=== PATIENT | female | born 1950 | race Native Hawaiian/Other Pacific Islander ===

== ENCOUNTER 2018-02-27 07:34 | Outpatient (CLI) | payer OTHER | END 2018-02-27 19:28 | disposition home or self-care (01) | LOC: LABW 07:34 | DX: R73.9 Hyperglycemia, unspecified (principal) | CPT/HCPCS: 36415; 83036 ==

== ENCOUNTER 2018-08-20 07:57 | Outpatient (CLI) | payer OTHER | END 2018-08-20 22:21 | disposition home or self-care (01) | LOC: MRI 07:57 | DX: M54.5 Low back pain (principal); M54.16 Radiculopathy, lumbar region ==

== ENCOUNTER 2019-03-25 08:54 | Outpatient (CLI) | payer OTHER | END 2019-03-25 21:51 | disposition home or self-care (01) | LOC: LABW 08:54 | DX: R30.0 Dysuria (principal) | CPT/HCPCS: 81000; 87077; 87086; 87088; 87186 ==

== ENCOUNTER 2019-06-12 12:55 | Outpatient (CLI) | payer OTHER | END 2019-06-12 19:13 | disposition home or self-care (01) | LOC: LAB 12:55 | DX: N30.00 Acute cystitis without hematuria (principal) | CPT/HCPCS: 87077; 87086; 87088; 87186 ==

== ENCOUNTER 2020-01-21 09:56 | Outpatient (CLI) | payer OTHER | END 2020-01-21 19:29 | disposition home or self-care (01) | LOC: RAD 09:56 | DX: M25.562 Pain in left knee (principal); M25.561 Pain in right knee ==

== ENCOUNTER 2020-02-12 08:47 | Outpatient (CLI) | payer OTHER | END 2020-02-12 23:54 | disposition home or self-care (01) | LOC: MRI 08:47 | DX: M25.562 Pain in left knee (principal) ==

== ENCOUNTER 2020-07-01 12:10 | Outpatient (CLI) | payer OTHER | END 2020-07-01 19:26 | disposition home or self-care (01) | LOC: RAD 12:10 | PROVIDERS: ATTEND Physician Assistant | DX: M25.562 Pain in left knee (principal) ==

== ENCOUNTER 2020-09-23 09:31 | Outpatient (CLI) | payer OTHER | END 2020-09-23 19:04 | disposition home or self-care (01) | LOC: RAD 09:31 | PROVIDERS: ATTEND Orthopaedic Surgery | DX: M25.562 Pain in left knee (principal) ==

== ENCOUNTER 2020-12-13 10:10 | Outpatient (CLI) | payer OTHER ==
[2020-12-13 10:45] LABS: PLATELET COUNT 229 K/uL (152-353)
[2020-12-13 11:20] LABS: POTASSIUM 4.8 mmol/L (3.6-5.2)
== END 2020-12-13 19:30 | disposition home or self-care (01) ==
LOC: LABW 10:10
PROVIDERS: ATTEND Internal Medicine
DX: R10.9 Unspecified abdominal pain (principal); R53.83 Other fatigue; L65.9 Nonscarring hair loss, unspecified; Z79.899 Other long term (current) drug therapy; E55.9 Vitamin D deficiency, unspecified
CPT/HCPCS: 36415; 80053; 81000; 82043; 82306; 82330; 82570; 82607; 82728; 82746; 83036; 83540; 83550; 83690; 83735; 84100; 84155; 84439; 84443; 85027; 85652; 86038; 87077; 87086; 87088; 87186

== ENCOUNTER 2020-12-15 09:47 | Outpatient (CLI) | payer OTHER | END 2020-12-15 22:13 | disposition home or self-care (01) | LOC: CT 09:47 | PROVIDERS: ATTEND Internal Medicine | DX: R10.84 Generalized abdominal pain (principal) | CPT/HCPCS: Q9963 ==

== ENCOUNTER 2021-05-10 13:16 | Outpatient (CLI) | payer OTHER | END 2021-05-10 18:59 | disposition home or self-care (01) | LOC: LAB 13:16 | PROVIDERS: ATTEND Internal Medicine | DX: L98.8 Other specified disorders of the skin and subcutaneous tissue (principal) ==

== ENCOUNTER 2021-08-10 09:14 | Outpatient (CLI) | payer OTHER | END 2021-08-10 21:58 | disposition home or self-care (01) | LOC: CT 09:14 | PROVIDERS: ATTEND Internal Medicine | DX: J18.9 Pneumonia, unspecified organism (principal) | CPT/HCPCS: 36415; 82565; 84520; Q9963 ==

== ENCOUNTER 2021-10-09 10:01 | Outpatient (CLI) | payer OTHER | END 2021-10-09 19:49 | disposition home or self-care (01) | LOC: LABW 10:01 | PROVIDERS: ATTEND Internal Medicine | DX: R10.9 Unspecified abdominal pain (principal); R73.9 Hyperglycemia, unspecified | CPT/HCPCS: 36415; 83036 ==

== ENCOUNTER 2021-10-23 11:31 | Outpatient (CLI) | payer OTHER | END 2021-10-23 19:02 | disposition home or self-care (01) | LOC: RAD 11:31 | PROVIDERS: ATTEND Physician Assistant | DX: M79.642 Pain in left hand (principal) ==

== ENCOUNTER 2022-12-07 12:12 | Outpatient (CLI) | payer OTHER | END 2022-12-07 19:02 | disposition home or self-care (01) | LOC: RAD 12:12 | PROVIDERS: ATTEND Orthopaedic Surgery | DX: M25.562 Pain in left knee (principal) ==

== ENCOUNTER 2023-01-15 11:50 | Outpatient (CLI) | payer OTHER | END 2023-01-15 20:15 | disposition home or self-care (01) | LOC: RAD 11:50 | PROVIDERS: ATTEND Orthopaedic Surgery | DX: M54.59 Other low back pain (principal) ==